=== PATIENT | female | born 1935 | race Caucasian/White ===

== ENCOUNTER 2017-01-13 10:04 | Emergency (ER) | payer MEDICARE, OTHER ==
[2017-01-13 10:26] VITALS: BP 165/103
--- NOTE | 2017-01-13 10:43 | EDM.PDOC ---
ED HPI Trauma - General Chief Complaint: Lower Extremity Injury/Pain Stated Complaint: RT FOOT/CANT WALK ON IT Time Seen by Provider: 01/13/17 10:30 Source: Reports: Patient History Limitations: Reports: No limitations - History of Present Illness INITIAL COMMENTS - FREE TEXT/NARRATIVE: This 81 yo female patient reports to the ED with a 4 day history of right ankle and foot pain. The patient reports she does not recall any injury to the area. The patient reports her pain started on Tuesday (01/08/17) and has been getting progressively worse since that time. The patient reports she has been wearing her compression stockings up to today. The patient did not put the stockings on today due to increased discomfort in the area. The patient reports her pain has increased to the point that she can not walk on her right foot/ankle. The patient reports no pain at rest. Symptom Onset Date: 01/08/17 Occurred When: other Occurred Where: home Method of Injury: unknown Severity: moderate Pain/Injury Location: Reports: lower extremity, right Consciousness: Reports: no loss of consciousness Associated Symptoms: Reports: no other symptoms Allergies/ADRs: Allergies No Known Allergies Allergy (Verified 01/13/17 10:23) Home Medications: Ambulatory Orders Calcium Carbonate/Vitamin D3 [Calcium 600 + Vit D 400 Softgl] 1 tab PO DAILY [Confirmed 01/13/17] Cholecalciferol (Vitamin D3) [Cholecalciferol] 5,000 intnl unit PO DAILY [Confirmed 01/13/17] Demeclocycline HCl 300 mg PO BID 11/15/15 [Confirmed 01/13/17] Magnesium 250 mg PO DAILY 11/15/15 [Confirmed 01/13/17] Multivitamin/Iron/Folic Acid [Multi-Day Plus Iron Tablet] 1 tab PO DAILY [Confirmed 01/13/17] Naproxen Sodium [Aleve] 440 mg PO BID 11/15/15 [Confirmed 01/13/17] Sennosides/Docusate Sodium [Senokot-S Tablet] 2 cap PO ASDIRECTED PRN 11/15/15 [ Confirmed 01/13/17] Vitamin E Mixed [Vitamin E] 1 tab PO DAILY 11/15/15 [Confirmed 01/13/17] Furosemide [Lasix] 20 mg PO DAILY 01/13/17 [Confirmed 01/13/17] Potassium Chloride [Klor-Con M20] 20 meq PO DAILY 01/13/17 [Confirmed 01/13/17] Sertraline [Zoloft] 50 mg PO DAILY 01/13/17 [Confirmed 01/13/17] Tolterodine [Detrol LA 24 Hr] 01/13/17 Vit A/C/E AC/Znox/Cupric Oxide [Eye Vitamin-Minerals Tablet] 1 each PO DAILY [Confirmed 01/13/17] Past Medical History HEENT History: Reports: Impaired vision Other HEENT History: wears glasses, Cardiovascular History: Reports: Hypertension Respiratory History: Reports: None Gastrointestinal History: Reports: None Genitourinary History: Reports: None TIRE SORTER History: Reports: None Musculoskeletal History: Reports: Osteoarthritis, Osteoporosis Neurological History: Reports: None Other Neuro History: scoliosis Psychiatric History: Reports: None Endocrine/Metabolic History: Reports: None Hematologic History: Reports: None Immunologic History: Reports: None Oncologic (Cancer) History: Reports: None Dermatologic History: Reports: None - Infectious Disease History Infectious Disease History: Reports: Measles - Past Surgical History Head Surgeries/Procedures: Reports: None Musculoskeletal Surgical History: Reports: Knee replacement Other Musculoskeletal Surgeries/Procedures:: partial hip replacement, right Social & Family History - Tobacco Use Smoking Status *Q: Never Smoker Second Hand Smoke Exposure: No - Caffeine Use Caffeine Use: Reports: Coffee - Recreational Drug Use Recreational Drug Use: No Review of Systems - Review of Systems Review Of Systems: ROS reveals no pertinent complaints other than HPI. Trauma Exam - Physical Exam Exam: See Below Exam Limited By: No limitations General Appearance: Reports: alert, WD/WN, mild distress, thin Head: Reports: atraumatic, normocephalic Eyes: bilateral eye: EOMI, normal inspection, PERRL Ears: Reports: normal external exam, normal canal, hearing grossly normal, normal TMs Nose: Reports: normal inspection, normal mucousa, no blood Throat/Mouth: Reports: Normal inspection, Normal lips, Normal teeth, Normal gums , Normal oropharynx, Normal voice, No airway compromise Neck: Reports: non-tender, full range of motion, normal alignment, normal inspection Respiratory Exam: Reports: no respiratory distress, lungs clear, normal breath sounds Cardiovascular: Reports: normal peripheral pulses, regular rate, rhythm, no edema, no gallop, no JVD, no murmur, no rub GI/Abdominal: Reports: normal bowel sounds, soft, non tender, no organomegaly, no distention, no abnormal bruit, no mass (Female) Exam: Deferred Rectal (Female) Exam: Deferred Extremities: Reports: normal range of motion, pelvis stable, bony-point tenderness (right lateral ankle), pain with movement (right lateral ankle and foot), pedal edema, tenderness (right lower lateral leg and right lateral foot) Neurologic: Reports: member services representative II-XII nml as tested, no motor/sensory deficits, alert , normal mood/affect, oriented x 3 Skin: Reports: Normal color, Warm/dry - [place] Coma Score Best Eye Response ([place]): (4) open spontaneously Best Verbal Response ([place]): (5) oriented Best Motor Response ([place]): (6) obeys commands [place] Total: 15 Course - Vital Signs Last Recorded V/S: Last Vital Signs Temp 36.8 C 01/13/17 10:25 Pulse 86 01/13/17 10:25 Resp 16 01/13/17 10:25 BP 165/103 H 01/13/17 10:25 Pulse Ox 96 01/13/17 10:25 - Orders/Labs/Meds Orders: Active Orders 24 hr Category Date Time Status DME for Discharge [COMM] Urgent Oth 01/13/17 11:45 Ordered Departure - Departure Time of Disposition: 11:45 Disposition: Home, Self-Care 01 Condition: fair Clinical Impression: Nondisplaced fracture of right tibia Qualifiers: Encounter type: initial encounter Tibia location: distal Fracture type: closed Fracture morphology: pilon Qualified Code(s): S82.874A - Nondisplaced pilon fracture of right tibia, initial encounter for closed fracture Instructions: Tibial Fracture, Adult, [id number] Forms: ED Department Discharge Care Plan Goals: The patient was advised of the examination and x-ray results during the visit. The patient was placed in a right walking boot for support. The patient was encouraged to keep non-weight bearing. The patient should follow-up with an agricultural systems specialist (x-rays have been sent to [place]). If the patient has any additional symptoms or further concerns, the patient should visit her primary care facility or return to the emergency department. - My Orders Last 24 Hours: My Active Orders 01/13/17 11:45 DME for Discharge [COMM] Urgent - Assessment/Plan Last 24 Hours: My Active Orders 01/13/17 11:45 DME for Discharge [COMM] Urgent
--- NOTE | 2017-01-13 11:32 | CR ---
CLINICAL HISTORY: 81-year-old female with right ankle pain. INTERPRETATION: AP lateral views of the right lower extremity is abnormal. Nondisplaced fracture distal diaphysis of the osteoporotic right fibula with some overlying soft tis spenser swelling. (Old healed fracture deformity lateral malleolus distal fibula and chronic arthritic changes of the tibiotalar joint). Proximal tibial component of the total right knee prosthesis satisfactorily "seated" without signs o f loosening. No other acute long bone tibial or fibular fracture and no dislocation of the right knee or ankle grant int.
--- NOTE | 2017-01-13 11:36 | CR ---
CLINICAL HISTORY: 81-year-old female with right ankle pain. INTERPRETATION: Three views confirm soft tissue swelling laterally and large ankle joint effusion th is patient with old healed fracture deformity lateral malleolus distal fibula. *Focal callus around nondisplaced distal diaphyseal fracture of the right fibula. Osteoporosis and irregular sclerosis across the distal right tibia consistent with old nondisplaced tibial fracture (October 2015). Pes planus and orthopedic screws. (Irregular sclerosis osteoporotic os calcis consistent with calcan eal stress fracture. (Present October 2015). NOTE: Fracture distal right tibia new since 15 November 2015 exam. No interval change in appearance apparent nondisplaced calcaneal stress fracture and the mildly impacted nondisplaced diaphyseal frac ture of the ipsilateral right tibia also evident on earlier exam.
--- NOTE | 2017-01-13 11:40 | CR ---
Clinical history: 81-year-old female right ankle and foot pain. Interpretation: Fractures distal right fibula (new distal diaphysis and old fracture deformity lateral malleolus). Orthopedic corrective surgery distal end of first metatarsal (2 screws) and chronic arthritic change s first carpometacarpal and metatarsophalangeal joint. Pes planus. Apparent fusion of the interphalangeal joints second third and fourth digits. No foreign body or acute metatarsal or other forefoot fracture/dislocation this osteoporotic patient. Old healed stress fracture os calcis.
== END 2017-01-13 12:01 | disposition home or self-care (01) ==
LOC: DL.ED 10:04
DX: S82.874A Nondisplaced pilon fracture of right tibia, initial encounter for closed fracture (principal); I10 Essential (primary) hypertension; M19.90 Unspecified osteoarthritis, unspecified site; Z79.899 Other long term (current) drug therapy; X58.XXXA Exposure to other specified factors, initial encounter; Y92.009 Unspecified place in unspecified non-institutional (private) residence as the place of occurrence of the external cause
CPT/HCPCS: 73590-RT; 73610-RT; 73630-RT; 99283

== ENCOUNTER 2018-05-07 13:32 | Emergency (ER) | payer MEDICARE, OTHER ==
[2018-05-07 14:00] VITALS: BP 122/69
--- NOTE | 2018-05-07 15:40 | EDM.PDOC ---
Scribed by Seble Sierra 05/07/18 0712 for Gavino Barnett MD ED HPI GENERAL MEDICAL PROBLEM - General Chief Complaint: Lower Extremity Injury/Pain Stated Complaint: SAT DOWN REALLY HARD. LEFT HIP REALLY HURTS Time Seen by Provider: 05/07/18 13:57 Source of Information: Reports: Patient, RN, RN Notes Reviewed History Limitations: Reports: No Limitations - History of Present Illness INITIAL COMMENTS - FREE TEXT/NARRATIVE: Patient presents to ER with left hip pain for the last 2 days. Pain started when she got off balance, trying to get her pants pulled up when she was standing to get off the toilet. To avoid falling she let herself seat back on the commode with a high impact. She was initially able to stand, but since that time she has had mild persistent pain with movement and weight bearing. She denies any low back pain or radiating pain. Denies any numbness or tingling. Onset: Gradual Duration: Getting Worse Location: Reports: Lower Extremity, Left Quality: Reports: Ache Severity: Moderate Improves with: Reports: None Worsens with: Reports: None Associated Symptoms: Reports: No Other Symptoms - Related Data Allergies Allergy/AdvReac Type Severity Reaction Status Date / Time No Known Allergies Allergy Verified 05/07/18 15:12 Home Meds: Home Meds Calcium Carbonate/Vitamin D3 [Calcium 600 + Vit D 400 Softgl] 1 tab PO DAILY [History] Cholecalciferol (Vitamin D3) [Cholecalciferol] 5,000 intnl unit PO DAILY [History] Demeclocycline HCl 300 mg PO BID 11/15/15 [History] Magnesium 250 mg PO DAILY 11/15/15 [History] Multivitamin/Iron/Folic Acid [Multi-Day Plus Iron Tablet] 1 tab PO DAILY [History] Naproxen Sodium [Aleve] 440 mg PO BID 11/15/15 [History] Sennosides/Docusate Sodium [Senokot-S Tablet] 2 cap PO ASDIRECTED PRN 11/15/15 [ History] Vitamin E Mixed [Vitamin E] 1 tab PO DAILY 11/15/15 [History] Furosemide [Lasix] 20 mg PO DAILY 01/13/17 [History] Potassium Chloride [Klor-Con M20] 20 meq PO DAILY 01/13/17 [History] Sertraline [Zoloft] 50 mg PO DAILY 01/13/17 [History] Tolterodine [Detrol LA 24 Hr] 300 mg PO DAILY 01/13/17 [History] Vit A/C/E AC/Znox/Cupric Oxide [Eye Vitamin-Minerals Tablet] 1 each PO DAILY [History] Past Medical History HEENT History: Reports: Impaired Vision Other HEENT History: wears glasses, Cardiovascular History: Reports: Hypertension Respiratory History: Reports: None Gastrointestinal History: Reports: None Genitourinary History: Reports: None INTERNET NETWORK SPECIALIST History: Reports: None Musculoskeletal History: Reports: Osteoarthritis, Osteoporosis Neurological History: Reports: None Other Neuro History: scoliosis Psychiatric History: Reports: None Endocrine/Metabolic History: Reports: None Hematologic History: Reports: None Immunologic History: Reports: None Oncologic (Cancer) History: Reports: None Dermatologic History: Reports: None - Infectious Disease History Infectious Disease History: Reports: Measles - Past Surgical History Musculoskeletal Surgical History: Reports: Knee Replacement Social & Family History - Caffeine Use Caffeine Use: Reports: Coffee Review of Systems - Review of Systems Review Of Systems: ROS reveals no pertinent complaints other than HPI. ED EXAM, GENERAL - Physical Exam Exam: See Below Exam Limited By: No Limitations General Appearance: Alert, No Apparent Distress, Other (frail elderly appearing) Throat/Mouth: Normal Voice Head: Atraumatic, Normocephalic Neck: Normal Inspection, Supple, Non-Tender, Full Range of Motion Respiratory/Chest: No Respiratory Distress Cardiovascular: Normal Peripheral Pulses, Regular Rate, Rhythm GI/Abdominal: Pelvis Stable Back Exam: Normal Inspection. No: Vertebral Tenderness Extremities: Normal Range of Motion (pain with range of motion at left hip. ), No Pedal Edema, Normal Capillary Refill, Other (no visible bruising, swelling, erythema or deformity at the left hip or pelvis. ) Neurological: Alert, Oriented, No Motor/Sensory Deficits Psychiatric: Normal Mood Skin Exam: Warm, Dry, Intact, Normal Color, No Rash Course - Vital Signs Last Recorded V/S: Last Vital Signs Temp 37.0 C 05/07/18 13:52 Pulse 93 05/07/18 13:52 Resp 18 05/07/18 13:52 BP 122/69 05/07/18 13:52 Pulse Ox 95 05/07/18 13:52 - Orders/Labs/Meds Orders: Active Orders 24 hr Category Date Time Status Hip Min 2V or 3V w Pelvis Lt [CR] Stat Exams 05/07/18 13:59 Taken - Radiology Interpretation Free Text/Narrative:: X-ray bilateral hips: Right total hip replacement is in place. No evidence of complications. No evidence of acute fracture. See rad report. - Re-Assessments/Exams Free Text/Narrative Re-Assessment/Exam: 05/07/18 15:39 Pt ambulates well and has a walker at home for stability. Departure - Departure Time of Disposition: 15:38 Disposition: Home, Self-Care 01 Condition: Good Clinical Impression: Contusion, hip Qualifiers: Encounter type: initial encounter Laterality: left Qualified Code(s): S70.02XA - Contusion of left hip, initial encounter - Discharge Information Instructions: Contusion, [id number] Referrals: Sarah Adamson, [facility] [Primary Care Provider] - Forms: ED Department Discharge Additional Instructions: Patient is to follow up in clinic in 7 days if not improved. - My Orders Last 24 Hours: My Active Orders 05/07/18 13:59 Hip Min 2V or 3V w Pelvis Lt [CR] Stat - Assessment/Plan Last 24 Hours: My Active Orders 05/07/18 13:59 Hip Min 2V or 3V w Pelvis Lt [CR] Stat I have read and agree with the documentation that has been completed regarding this visit. By signing this record, I attest that the documentation was completed in my physical presence and is an accurate record of the encounter.
== END 2018-05-07 15:54 | disposition home or self-care (01) ==
LOC: DL.ED 13:32
DX: S70.02XA Contusion of left hip, initial encounter (principal); I10 Essential (primary) hypertension; Z79.899 Other long term (current) drug therapy; X50.9XXA Other and unspecified overexertion or strenuous movements or postures, initial encounter; Z96.641 Presence of right artificial hip joint; Y92.002 Bathroom of unspecified non-institutional (private) residence as the place of occurrence of the external cause
CPT/HCPCS: 99283; 99284